=== PATIENT | male | born 1960 | race Caucasian/White ===

== ENCOUNTER 2017-07-13 21:28 | Emergency (ER) | payer MEDICAID, OTHER ==
[2017-07-13 21:41] VITALS: BP 165/101; PULSE 79; RESP 18; TEMP 98.5; O2SAT 98
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
[2017-07-13] MEDS ORDERED: Lidocaine 2% w Epi 1:100,000 Inj IJ ONE (22:33)
[2017-07-13] MEDS ORDERED: Tdap Vaccine 0.5 ml Vial (10-64 yrs) IM ONE ×2 (22:37→23:42)
== END 2017-07-14 00:57 | disposition home or self-care (01) ==
LOC: H.ER 21:28
DX: S01.511A Laceration without foreign body of lip, initial encounter (principal); Y04.0XXA Assault by unarmed brawl or fight, initial encounter; Y92.89 Other specified places as the place of occurrence of the external cause; E03.9 Hypothyroidism, unspecified; E78.00 Pure hypercholesterolemia, unspecified; I10 Essential (primary) hypertension; N40.0 Benign prostatic hyperplasia without lower urinary tract symptoms
CPT/HCPCS: 13152; 90471; 90715; 96372; 99283; J0690; J1885